=== PATIENT | male | born 1985 | race Caucasian/White ===

== ENCOUNTER → 2019-07-20 10:11 | Outpatient (CLI) | payer OTHER, SELFPAY ==
[2019-07-20 11:00] LABS: Add Manual Diff / Slide Review NO; Basophils Absolute Auto 0 /uL (0-100); Basophils Percent Auto 0.8 % (0-2); Eosinophils Absolute Auto 0 /uL (0-450); Hematocrit 41.1 % (41-53); Hemoglobin 14.3 g/dL (13.5-17.5); Lymphocytes Absolute Auto 1100 /uL (1100-4500); Lymphocytes Percent Auto 38.6 % (25-40); Mean Corpuscular Hemoglobin 30.1 PG (26-34); Monocytes Absolute Auto 200 /uL (0-900); Monocytes Percent Auto 7.1 % (3-14); Neutrophils Absolute Auto 1500 /uL (1500-7000); Neutrophils Percent Auto 52.5 % (50-75); Platelet Count 194 X10^3/uL (150-400); Red Blood Cell Count 4.77 X10^6/uL (4.5-5.9); Red Cell Distribution Width 13.4 % (11.6-14.8); White Blood Cell Count 2.9 X10^3/uL (4.5-11.0)
[2019-07-20 11:07] LABS: Hemoglobin A1C% w Est Avg Glu 5.2 % (4.0-6.0)
[2019-07-20 11:24] LABS: Alanine Aminotransferase 39 IU/L (<50); Albumin 4.6 g/dL (3.5-5.0); Alkaline Phosphatase 52 U/L (38-126); Aspartate Aminotransferase 41 IU/L (17-59); BUN Creatinine Ratio 21.6 (6-22); Bilirubin Total 0.4 mg/dL (0.2-1.3); Blood Urea Nitrogen 16 mg/dL (9-20); Calcium 9.7 mg/dL (8.4-10.2); Carbon Dioxide 27 mmol/L (22-32); Chloride 105 mmol/L (98-107); Estimated Glomerular Filt Rate > 60.0 mL/min (>60); Globulin 3.5 g/dL (1.7-4.1); Glucose 107 mg/dL (70-100); Potassium 4.4 mmol/L (3.4-5.1); Sodium 139 mmol/L (137-145); Total Protein 8.1 g/dL (6.3-8.2)
[2019-07-20 11:25] LABS: Albumin Globulin Ratio 1.3 (1.0-2.8); Cholesterol 200 mg/dL (140-199); HDL Cholesterol 56 mg/dL (40-60); HEMOLYSIS < 15 (0-50); LDL Cholesterol Calculated 122 mg/dL (<100); Triglycerides 110 mg/dL (35-150)
[2019-07-20 12:01] LABS: Thyroid Stimulating Hormone 1.12 uIU/mL (0.47-4.68)
== END ==
PROVIDERS: PCP Family Medicine; Referring Provider Family Medicine; Visit Provider Family Medicine
DX: Z00.00 Encounter for general adult medical examination without abnormal findings (principal)
CPT/HCPCS: 36415; 80053; 80061; 83036; 84443; 85025

== ENCOUNTER → 2019-08-07 07:18 | Outpatient (CLI) | payer OTHER, SELFPAY ==
[2019-08-07 08:15] LABS: Add Manual Diff / Slide Review NO; Basophils Absolute Auto 0 /uL (0-100); Basophils Percent Auto 0.7 % (0-2); Eosinophils Absolute Auto 100 /uL (0-450); Eosinophils Percent Auto 1.9 % (2-4); Hematocrit 39.6 % (41-53); Lymphocytes Absolute Auto 1400 /uL (1100-4500); Lymphocytes Percent Auto 47.6 % (25-40); Mean Corpuscular HGB Conc 35.3 % (30-36); Mean Corpuscular Hemoglobin 30.1 PG (26-34); Mean Corpuscular Volume 85.2 fL (80-100); Monocytes Absolute Auto 200 /uL (0-900); Monocytes Percent Auto 7.3 % (3-14); Neutrophils Absolute Auto 1300 /uL (1500-7000); Neutrophils Percent Auto 42.5 % (50-75); Platelet Count 191 X10^3/uL (150-400); Red Blood Cell Count 4.65 X10^6/uL (4.5-5.9); Red Cell Distribution Width 12.9 % (11.6-14.8)
== END ==
PROVIDERS: PCP Family Medicine; Referring Provider Family Medicine; Visit Provider Family Medicine
DX: Z00.00 Encounter for general adult medical examination without abnormal findings (principal)
CPT/HCPCS: 36415; 85025

== ENCOUNTER → 2019-10-30 08:00 | Outpatient (CLI) | payer OTHER, SELFPAY ==
[2019-10-30 09:45] LABS: Hematocrit 37.8 % (41-53); Hemoglobin 13.1 g/dL (13.5-17.5); Mean Corpuscular HGB Conc 34.7 % (30-36); Mean Corpuscular Hemoglobin 29.5 PG (26-34); Platelet Count 174 X10^3/uL (150-400); Red Blood Cell Count 4.44 X10^6/uL (4.5-5.9); Red Cell Distribution Width 13.2 % (11.6-14.8)
[2019-10-30 10:10] LABS: Neutrophils Absolute Manual 1350 /uL (3000-5900); Total Cells Counted 100
[2019-10-30 10:12] LABS: RBC Morphology Normal Morphology
== END ==
PROVIDERS: PCP Family Medicine; Referring Provider Family Medicine; Visit Provider Family Medicine
DX: Z00.00 Encounter for general adult medical examination without abnormal findings (principal)
CPT/HCPCS: 36415; 85025

== ENCOUNTER → 2019-11-09 15:57 | Outpatient (CLI) | payer OTHER, SELFPAY ==
[2019-11-09 17:28] LABS: Reticulocyte Count, Percent 0.8 % (0.87-2.60)
== END ==
PROVIDERS: PCP Family Medicine; Referring Provider Family Medicine; Visit Provider Family Medicine
DX: D64.9 Anemia, unspecified (principal)
CPT/HCPCS: 36415; 85045

== ENCOUNTER → 2020-09-02 10:08 | Outpatient (CLI) | payer OTHER, SELFPAY ==
[2020-09-02 10:49] LABS: HEMOLYSIS < 15 (0-50); Iron 143 ug/dL (49-181)
[2020-09-02 11:00] LABS: Percent Iron Saturation 53 % (20-50); Total Iron Binding Capacity 271 ug/dL (261-462); Transferrin 219 mg/dL (206-381)
[2020-09-02 11:55] LABS: Folate 16.5 ng/mL (2.76-20.0); Vitamin B12 371 pg/mL (239-931)
== END ==
PROVIDERS: PCP Family Medicine; Referring Provider Family Medicine; Visit Provider Family Medicine
DX: D64.9 Anemia, unspecified (principal)
CPT/HCPCS: 36415; 82607; 82746; 83540; 83550

== ENCOUNTER → 2020-09-05 17:22 | Outpatient (CLI) | payer OTHER, SELFPAY ==
[2020-09-05 18:13] LABS: Add Manual Diff / Slide Review NO; Basophils Absolute Auto 0 /uL (0-100); Basophils Percent Auto 0.7 % (0-2); Eosinophils Absolute Auto 0 /uL (0-450); Hematocrit 39.3 % (41-53); Hemoglobin 13.6 g/dL (13.5-17.5); Lymphocytes Absolute Auto 1700 /uL (1100-4500); Mean Corpuscular HGB Conc 34.7 % (30-36); Mean Corpuscular Hemoglobin 29.6 PG (26-34); Mean Corpuscular Volume 85.3 fL (80-100); Monocytes Absolute Auto 200 /uL (0-900); Monocytes Percent Auto 5.3 % (3-14); Neutrophils Absolute Auto 1600 /uL (1500-7000); Platelet Count 187 X10^3/uL (150-400); Red Blood Cell Count 4.61 X10^6/uL (4.5-5.9); Red Cell Distribution Width 13.4 % (11.6-14.8); White Blood Cell Count 3.5 X10^3/uL (4.5-11.0)
== END ==
PROVIDERS: PCP Family Medicine; Referring Provider Family Medicine; Visit Provider Family Medicine
DX: D72.819 Decreased white blood cell count, unspecified (principal)
CPT/HCPCS: 36415; 85025

== ENCOUNTER → 2020-11-24 15:03 | Outpatient (CLI) | payer OTHER, SELFPAY ==
[2020-11-24 15:35] LABS: Add Manual Diff / Slide Review NO; Basophils Absolute Auto 0 /uL (0-100); Basophils Percent Auto 0.3 % (0-2); Eosinophils Absolute Auto 100 /uL (0-450); Eosinophils Percent Auto 0.7 % (2-4); Hematocrit 39.5 % (41-53); Hemoglobin 13.5 g/dL (13.5-17.5); Lymphocytes Absolute Auto 1300 /uL (1100-4500); Lymphocytes Percent Auto 13.4 % (25-40); Mean Corpuscular HGB Conc 34.1 % (30-36); Mean Corpuscular Volume 85.2 fL (80-100); Monocytes Absolute Auto 400 /uL (0-900); Monocytes Percent Auto 4.6 % (3-14); Neutrophils Absolute Auto 7800 /uL (1500-7000); Platelet Count 198 X10^3/uL (150-400); Red Blood Cell Count 4.64 X10^6/uL (4.5-5.9); Red Cell Distribution Width 13.1 % (11.6-14.8); White Blood Cell Count 9.6 X10^3/uL (4.5-11.0)
== END ==
PROVIDERS: PCP Family Medicine; Referring Provider Family Medicine; Visit Provider Family Medicine
DX: D64.9 Anemia, unspecified (principal)
CPT/HCPCS: 36415; 85025

== ENCOUNTER → 2022-09-14 16:17 | Outpatient (CLI) | payer OTHER, SELFPAY ==
--- NOTE | 2022-09-14 16:18 | DI.RAD.S_ITS ---
PROCEDURE: XR WRIST LT MIN 3V INDICATIONS: swelling to the fingers, now wrist TECHNIQUE: 3 views of the wrist were acquired. COMPARISON: None. FINDINGS: Bones: No fractures or dislocations. No suspicious bony lesions. Soft tissues: No suspicious soft tissue calcifications. IMPRESSION: Unremarkable left wrist radiographs Approved by: Tony Geiger M.D. on 09/14/2022 at 16:28
--- NOTE | 2022-09-14 16:19 | DI.RAD.S_ITS ---
PROCEDURE: XR HAND LT MIN 3V INDICATIONS: SWELLING TO THE FINGERS, NOW WRIST TECHNIQUE: 3 views of the hand(s) acquired. COMPARISON: None. FINDINGS: Bones: No fractures or dislocations. Carpal bones are normally aligned. No suspicious bony lesions. Soft tissues: No suspicious soft tissue calcifications. IMPRESSION: Unremarkable left hand radiographs Approved by: Tony Geiger M.D. on 09/14/2022 at 16:29
[2022-09-14 16:57] LABS: Add Manual Diff / Slide Review NO; Basophils Absolute Auto 0 /uL (0-100); Basophils Percent Auto 0.5 % (0-2); Eosinophils Absolute Auto 0 /uL (0-450); Eosinophils Percent Auto 0.5 % (2-4); Hematocrit 36.7 % (41-53); Hemoglobin 12.8 g/dL (13.5-17.5); Lymphocytes Absolute Auto 1300 /uL (1100-4500); Lymphocytes Percent Auto 22.3 % (25-40); Mean Corpuscular HGB Conc 34.8 % (30-36); Mean Corpuscular Hemoglobin 29.6 PG (26-34); Monocytes Absolute Auto 400 /uL (0-900); Monocytes Percent Auto 7.2 % (3-14); Neutrophils Absolute Auto 4100 /uL (1500-7000); Neutrophils Percent Auto 69.5 % (50-75); Platelet Count 211 X10^3/uL (150-400); Red Blood Cell Count 4.31 X10^6/uL (4.5-5.9); Red Cell Distribution Width 13.4 % (11.6-14.8); White Blood Cell Count 5.9 X10^3/uL (4.5-11.0)
== END ==
PROVIDERS: PCP Family Medicine; Referring Provider Nurse Practitioner Family; Visit Provider Nurse Practitioner Family
DX: L03.90 Cellulitis, unspecified (principal); M25.40 Effusion, unspecified joint
CPT/HCPCS: 36415; 73110; 73130; 85025

== ENCOUNTER → 2023-05-10 08:45 | Outpatient (CLI) | payer OTHER, SELFPAY ==
[2023-05-10 09:52] LABS: Add Manual Diff / Slide Review NO; Basophils Absolute Auto 0 /uL (0-100); Basophils Percent Auto 0.9 % (0-2); Eosinophils Absolute Auto 0 /uL (0-450); Hemoglobin 13.9 g/dL (13.5-17.5); Lymphocytes Absolute Auto 1400 /uL (1100-4500); Lymphocytes Percent Auto 43.2 % (25-40); Mean Corpuscular HGB Conc 34.8 % (30-36); Mean Corpuscular Hemoglobin 29.7 PG (26-34); Mean Corpuscular Volume 85.4 fL (80-100); Monocytes Absolute Auto 200 /uL (0-900); Monocytes Percent Auto 5.7 % (3-14); Neutrophils Absolute Auto 1600 /uL (1500-7000); Neutrophils Percent Auto 49.2 % (50-75); Platelet Count 217 X10^3/uL (150-400); Red Blood Cell Count 4.69 X10^6/uL (4.5-5.9); Red Cell Distribution Width 13.4 % (11.6-14.8); White Blood Cell Count 3.2 X10^3/uL (4.5-11.0)
[2023-05-10 10:04] LABS: HEMOLYSIS < 15 (0-50); Iron 94 ug/dL (49-181)
[2023-05-10 10:10] LABS: Alanine Aminotransferase 29 IU/L (<50); Albumin 4.4 g/dL (3.5-5.0); Albumin Globulin Ratio 1.3 (1.0-2.8); Alkaline Phosphatase 40 U/L (38-126); Aspartate Aminotransferase 29 IU/L (17-59); BUN Creatinine Ratio 21.1 (6-22); Bilirubin Total 0.8 mg/dL (0.2-1.3); Blood Urea Nitrogen 16 mg/dL (9-20); Calcium 9.7 mg/dL (8.4-10.2); Carbon Dioxide 25 mmol/L (22-32); Chloride 102 mmol/L (98-107); Cholesterol 188 mg/dL (140-199); Estimated Glomerular Filt Rate > 60 mL/min (>60); Globulin 3.5 g/dL (1.7-4.1); Glucose 95 mg/dL (70-100); HDL Cholesterol 63 mg/dL (40-60); HEMOLYSIS < 15 (0-50); LDL Cholesterol Calculated 113 mg/dL (<100); Potassium 4.4 mmol/L (3.4-5.1); Sodium 137 mmol/L (137-145); Total Protein 7.9 g/dL (6.3-8.2); Triglycerides 62 mg/dL (35-150)
[2023-05-10 10:15] LABS: Percent Iron Saturation 35 % (20-50); Total Iron Binding Capacity 265 ug/dL (261-462); Transferrin 229 mg/dL (206-381)
[2023-05-10 10:38] LABS: TSH w/ Reflex to FT4 1.54 uIU/mL (0.47-4.68)
[2023-05-10 10:54] LABS: Vitamin B12 419 pg/mL (239-931)
== END ==
PROVIDERS: PCP Family Medicine; Referring Provider Family Medicine; Visit Provider Family Medicine
DX: Z00.00 Encounter for general adult medical examination without abnormal findings (principal); D64.9 Anemia, unspecified; D72.819 Decreased white blood cell count, unspecified
CPT/HCPCS: 36415; 80053; 80061; 82607; 83540; 83550; 84443; 85025

== ENCOUNTER 2024-08-23 09:11 | Emergency (ER) | payer OTHER, SELFPAY ==
[2024-08-23 09:15] VITALS: BP 147/81; PULSE 66; O2SAT 100
[2024-08-23 09:16] VITALS: BP 147/87; PULSE 67; RESP 18; TEMP 37; O2SAT 100; BMI 22.4
--- NOTE | 2024-08-23 09:17 | DI.RAD.S_ITS ---
PROCEDURE: XR KNEE RT 3V INDICATIONS: Sudden knee pop w/ carrying weight. limping and pain TECHNIQUE: 3 views of the knee were acquired. COMPARISON: None. FINDINGS: Bones: No acute fractures or dislocations. No suspicious bony lesions. Soft tissues: No joint effusion. No suspicious soft tissue calcifications. IMPRESSION: No acute osseous abnormality. If there is continued clinical concern or persistent symptoms, repeat radiographs or cross-sectional imaging (e.g. CT, MRI) may be helpful for further evaluation. Approved by: Bethel Billingsley M.D. on 08/23/2024 at 8:51
[2024-08-23 09:22] VITALS: BMI 22.4
--- NOTE | 2024-08-23 09:24 | ED.GENADULT ---
HPI - General Adult General Chief complaint: Extremity Injury, Lower Stated complaint: pop in rt knee, tightness, nonweightbearing t-1 Time Seen by Provider: 08/23/24 09:16 Source: patient Mode of arrival: Ambulatory History of Present Illness HPI narrative: 39-year-old male yesterday was walking at home and swerved to avoid their dog, with right leg extended forward slight twisting motion in planted position, felt twinge and popping senstion in the right knee area, medial to the patellar tendon when he points to indicate where there is pain, the pain has been persistent since that time. No gross knee instability. He has been able to walk around. Still has some discomfort with walking. Not using any crutches. No bracing. Seizing [id number] anti-inflammatory medications. No sensation of kneecap dislocation/relocation. He is able to fully extend the knee. No gross knee effusion. No other injuries. Related Data Home Medications Medication Instructions Recorded Confirmed No Known Home Medications 05/10/23 05/10/23 Allergies Allergy/AdvReac Type Severity Reaction Status Date / Time No Known Drug Allergies Allergy Verified 08/23/24 09:21 Patient History Medical History Cellulitis Bilateral hip pain Shoulder dislocation (~2005) Shoulder pain (~2018) Fractures (~2005) Carpal tunnel syndrome (~2018) Leukopenia Anemia Well adult exam Surgical History Anesthesia History of mandibular surgery (~06/2005) H/O right wrist surgery (~06/2005) Family History Father Hernia Brother Testicular cancer Sister Leukemia Grandfather History of heart disease Social History Smoking Status: Never smoker Smoking Status: Never smoker Exam Narrative Exam Narrative: GENERAL: Well-developed patient, in mild distress. HEAD: Atraumatic. Normocephalic. EYES: Pupils equal round and reactive. Extraocular motions intact. No scleral icterus. No injection or drainage. ENT: Nose without bleeding, purulent drainage. Throat without erythema, tonsillar hypertrophy or exudate. Airway patent. NECK: Trachea midline. Non tender CARDIOVASCULAR: Regular rate and rhythm without murmurs, gallops, or rubs. RESPIRATORY: Clear to auscultation. Breath sounds equal bilaterally. No wheezes, rales, or rhonchi. GASTROINTESTINAL: Abdomen soft, non-tender, nondistended. EXTREMITIES: Right knee with no gross effusion or deformity, no abrasions or skin changes. No tenderness along medial joint line or lateral joint line. No gross instability with valgus stress or varus stress. Mild tenderness along the medial aspect of the patellar tendon not grossly disrupted. Full extension. Moses's with good end point. BACK: Nontender without deformity or crepitance. No flank tenderness. NEURO: AOx3. Motor functions grossly nonfocal SKIN: No rash or erythema of visible areas Initial Vital Signs Initial Vital Signs: Vital Signs Pulse Rate 66 08/23/24 09:15 Blood Pressure 147/81 H 08/23/24 09:15 Pulse Oximetry 100 08/23/24 09:15 Course Orders Ordered: ED Orders 08/23/24 09:17 XR knee RT 3V Stat Vital Signs Vital signs: Vital Signs - 8 hr 08/23/24 09:15 08/23/24 09:15 08/23/24 09:16 Temperature 98.6 F Pulse Rate 66 67 Respiratory Rate 18 Blood Pressure 147/81 H 147/87 H Pulse Oximetry 100 100 Oxygen Delivery Method Room Air 08/23/24 10:18 Temperature Pulse Rate 66 Respiratory Rate 16 Blood Pressure Pulse Oximetry Oxygen Delivery Method Room Air Medical Decision Making Imaging Data Extremity x-ray #1: Radiologist's Impression: [place] [address] XRay Report Signed Patient: Owen Agudelo MR#: [id number] : 1985 Acct:[id number] Age/Sex: 39 / M Date of Service: 08/23/24 Loc: ED Accession Number: [id number] Procedure: XR knee RT 3V Ordering Provider: Uday Hanson MD PROCEDURE: XR KNEE RT 3V INDICATIONS: Sudden knee pop w/ carrying weight. limping and pain TECHNIQUE: 3 views of the knee were acquired. COMPARISON: None. FINDINGS: Bones: No acute fractures or dislocations. No suspicious bony lesions. Soft tissues: No joint effusion. No suspicious soft tissue calcifications. IMPRESSION: No acute osseous abnormality. If there is continued clinical concern or persistent symptoms, repeat radiographs or cross-sectional imaging (e.g. CT, MRI) may be helpful for further evaluation. Approved by: Bethel Billingsley M.D. on 08/23/2024 at 8:51 MDM Narrative Medical decision making narrative: Right knee pain with slight twisting motion yesterday at home, tenderness medial aspect of patellar tendon. Not particularly along medial or lateral joint lines, good stability on Moses's and valgus/varus stress. No skin changes or gross effusion. X-ray ordered from triage. Trial of crutches and nonweightbearing until close evaluation. Possible ligamentous injury by mechanism. X-ray without obvious fracture changes, see radiology report. Radiology report also finding any acute bony injuries. See radiology report. Copy given to patient. Trial of knee immobilizer and crutches nonweightbearing until close follow up to see if patient can transition to weight-bearing status. Consider orthopedic surgery referral, MRI if persisting pain. Follow up with PCP advised this next week. Continue [id number] NSAIDs as needed. Ice rest elevation compression. Discharged home. Discharge Plan Departure Patient Disposition: Home Clinical Impression: Strain of right knee Activity Restrictions/Additional Instructions: Right knee pain and popping sensation, point of tenderness seems to be along the medial aspect of the patellar tendon, not particularly uncomfortable with palpation along the medial joint line or the lateral joint line. Reassuring stability ligamentous exam. X-ray negative without obvious fracture. Soft tissue/ligamentous injury suspected by history. Initial immobilization with nonweightbearing crutches for now. Rest, elevation of the extremity, ice as tolerated. Pedro wrap if you have 1 available for compression, although there does not seem to be any knee effusion swelling at this time. Consider recheck this next week with your regular doctor to see if you have rapid improvement, or if you need further evaluation such as advanced imaging or orthopedic surgery referral. Contact information given for local orthopedic surgeon on-call. But hopefully you can be seen by your local provider with resolution of symptoms. Return earlier to this/nearest emergency department for any change worsening symptoms or any concerns prior. Prescriptions: No Action No Known Home Medications Referrals: Prince Salvador DO [Primary Care Provider] - Tony Mo MD [Physician] - Stand Alone Forms: Patient Portal/API/Survey
[2024-08-23 10:18] VITALS: PULSE 66; RESP 16
--- NOTE | 2024-08-23 10:18 | PC.NURSE ---
Pt wanted to leave
== END 2024-08-23 10:19 | disposition home or self-care (01) ==
PROVIDERS: Emergency Provider Emergency Medicine; PCP Family Medicine
DX: S86.911A Strain of unspecified muscle(s) and tendon(s) at lower leg level, right leg, initial encounter (principal); X50.1XXA Overexertion from prolonged static or awkward postures, initial encounter
CPT/HCPCS: 73562; 99281; 99283

== ENCOUNTER → 2024-09-18 08:03 | Outpatient (CLI) | payer OTHER, SELFPAY ==
--- NOTE | 2024-09-18 08:05 | DI.ECHO.S_ITS ---
[facility] : : [id number] : [place] : : [id number] : : Phone: [phone] Echocardiogram Report + + :Name: EMILY MICHLEE Study Date: 09/18/2024 Height: 74 in : :[facility] ReadingLocation: Weight: 178 lb : : Gender: Male BSA: 2.1 m2 : :: 1985 Age: 39 yrs BP: 121/71 mmHg: :Reason For Study: MURMUR SCREENING : :Ordering Physician: CONNER, : :VENESSA Performed By: Chadwick Alves : :Referring: VENESSA PRIETO : + + Interpretation Summary The left ventricle is normal in size. The ejection fraction is estimated to be 60-65%. There are no focal wall motion abnormalities. Diastolic parameters suggest probable normal left ventricular diastolic function and normal filling pressures. The right ventricle is normal in size and function. The right ventricular systolic pressure is estimated to be at least 26 mmHg based on an estimated right atrial pressure of 3 mm Hg. The left atrial size is normal. There is no significant valvular heart disease. The aortic root is normal size. Procedure: A two-dimensional transthoracic echocardiogram with color flow and Doppler was performed. The study quality was technically good. There is no prior echocardiogram noted for this patient. The patient was in normal sinus rhythm during the exam. Left Ventricle: The left ventricle is normal in size. There is normal left ventricular wall thickness. There is no ventricular septal defect visualized. The ejection fraction is estimated to be 60-65%. There are no focal wall motion abnormalities. Diastolic parameters suggest probable normal left ventricular diastolic function and normal filling pressures. Right Ventricle: The right ventricle is normal in size and function. Atria: The left atrial size is normal. Right atrial size is normal. There is no Doppler evidence for an interatrial shunt. Mitral Valve: The mitral valve is normal in structure and function. There is no mitral regurgitation. Aortic Valve: The aortic valve is trileaflet. No aortic regurgitation is present. Tricuspid Valve: The tricuspid valve is normal in structure and function. There is trace tricuspid regurgitation. The right ventricular systolic pressure is estimated to be at least 26 mmHg based on an estimated right atrial pressure of 3 mm Hg. Pulmonic Valve: The pulmonic valve leaflets are thin and pliable; valve motion is normal. There is no pulmonic valvular regurgitation. There is no significant valvular heart disease. Great Vessels: The aortic root is normal size. The dimensions of the ascending aorta are normal. The pulmonary artery is normal size. The IVC is of normal diameter and collapses greater than 50% with a sniff. This suggests a low right atrial pressure of 3 mm Hg. Pericardium/ Pleura There is no pericardial effusion. There is no pleural effusion. MMode/2D Measurements & Calculations LVIDd: 5.0 cm LVOT diam: 2.2 cm LVIDs: 3.4 cm Ao root diam: 3.4 cm FS: 32.1 % asc Aorta Diam: 3.2 cm EPSS: 1.1 cm Ao Arch Diam (Prox Trans): 1.6 cm IVSd: 0.86 cm LVPWd: 0.79 cm LV pablo. diameter/BSA (cm/m^2): 2.4 LV sys. diameter/BSA (cm/m^2): 1.6 LA A2 area: 22.8 cm2 RA long axis: 4.5 cm LA A4 area: 17.8 cm2 RA area: 15.2 cm2 LA length (vol): 5.1 cm RA vol: 43.5 ml LA vol: 67.9 ml RA : 21.0 ml/m2 LA vol index: 32.9 ml/m2 IVC diam: 1.9 cm RVD1 (basal): 3.9 cm RVD2 (mid): 3.3 cm TAPSE: 1.8 cm Doppler Measurements & Calculations Ao V2 max: 137.6 cm/sec LVOT Max Korey: 102.2 cm/sec Ao V2 mean: 96.9 cm/sec LV V1 max P.2 mmHg Ao max P.6 mmHg LV V1 VTI: 22.7 cm Ao mean P.2 mmHg KIM(I,D): 3.0 cm2 Ao V2 VTI: 29.3 cm KIM(V,D): 2.9 cm2 sev ratio: 0.78 KIM indexed to BSA (cm^2/m^2): 1.5 MV E max korey: 77.3 cm/sec TR max korey: 241.6 cm/sec MV A max korey: 53.2 cm/sec TR max P.4 mmHg MV E/A: 1.5 PA V2 max: 100.1 cm/sec Med Peak E' Korey: 10.2 cm/sec PA V2 mean: 71.5 cm/sec E/E' med: 7.6 PA mean P.2 mmHg Lat Peak E' Korey: 18.9 cm/sec PA pr(Accel): 32.8 mmHg E/E' lat: 4.1 E/e' average: 5.8 MV dec time: 0.15 sec SV(LVOT): 89.4 ml Reading Physician:12:46 PM
== END ==
LOC: ECHO 08:04
PROVIDERS: PCP Family Medicine; Referring Provider Family Medicine; Visit Provider Family Medicine
DX: M25.561 Pain in right knee (principal)
CPT/HCPCS: 93306

== ENCOUNTER → 2024-12-21 15:02 | Outpatient (CLI) | payer OTHER, SELFPAY ==
[2024-12-21 15:28] LABS: Add Manual Diff / Slide Review NO; Hematocrit 39.3 % (41-53); Hemoglobin 13.9 g/dL (13.5-17.5); Lymphocytes Absolute Auto 1600 /uL (1100-4500); Mean Corpuscular HGB Conc 35.3 % (30-36); Mean Corpuscular Hemoglobin 29.4 PG (26-34); Mean Corpuscular Volume 83.4 fL (80-100); Platelet Count 205 X10^3/uL (150-400)
[2024-12-21 15:50] LABS: HEMOLYSIS < 15 (0-50); Iron 103 ug/dL (49-181)
[2024-12-21 15:53] LABS: Alanine Aminotransferase 33 IU/L (<50); Albumin 4.3 g/dL (3.5-5.0); Albumin Globulin Ratio 1.3 (1.0-2.8); Alkaline Phosphatase 57 U/L (38-126); Blood Urea Nitrogen 16 mg/dL (9-20); Calcium 9.5 mg/dL (8.4-10.2); Carbon Dioxide 25 mmol/L (22-32); Chloride 105 mmol/L (98-107); Cholesterol 200 mg/dL (140-199); Estimated Glomerular Filt Rate > 60 mL/min (>60); Globulin 3.2 g/dL (1.7-4.1); Glucose 87 mg/dL (70-99); HDL Cholesterol 59 mg/dL (40-60); HEMOLYSIS < 15 (0-50); Potassium 4.0 mmol/L (3.4-5.1); Sodium 138 mmol/L (137-145); Total Protein 7.5 g/dL (6.3-8.2); Triglycerides 207 mg/dL (35-150)
[2024-12-21 16:02] LABS: Percent Iron Saturation 40 % (20-50); Total Iron Binding Capacity 260 ug/dL (261-462); Transferrin 211 mg/dL (206-381)
[2024-12-21 16:20] LABS: TSH w/ Reflex to FT4 1.16 uIU/mL (0.47-4.68)
[2024-12-21 16:39] LABS: Vitamin B12 443 pg/mL (239-931)
== END ==
PROVIDERS: PCP Family Medicine; Referring Provider Family Medicine; Visit Provider Family Medicine
DX: Z00.00 Encounter for general adult medical examination without abnormal findings (principal); D64.9 Anemia, unspecified
CPT/HCPCS: 36415; 80053; 80061; 82607; 83540; 83550; 84443; 85025